=== PATIENT | female | born 1960 | race Caucasian/White ===

== ENCOUNTER → 2016-12-04 | Outpatient (CLI) | payer BC ==
--- NOTE | 2016-12-09 09:40 | MRI ---
HISTORY: RIGHT KNEE PAIN AND OSTEOARTHRITIS. EXAM: NON CONTRAST MRI EXAM OF THE RIGHT KNEE. TECHNIQUE: Multisequence and multiplanar T1 and T2 weighted sequences of the right knee were obtaine d without the administration of IV paramagnetic contrast at 1.5 Amina. COMPARISON: None available. FINDINGS: There is advanced, grade 3 and regions of grade 4, patellofemoral chondromalacia with moderate later al tracking the patella and moderate patellofemoral compartment DJD. There is a moderate size knee j oint effusion. There is no acute fracture appreciated. There is evidence for prepatellar bursitis. T here is full-thickness chondromalacia seen in the weight-bearing sector of the lateral knee compartm ent with diffuse maceration of the lateral meniscus. There is inner edge fraying of the medial menis cus, diffusely without evidence for a displaced medial meniscal tear. There is a chronic strain of t he otherwise intact MCL. The ACL is incompletely visualized which would suggest at least a partial t hickness, chronic, ACL tear. The PCL is intact. The posterior-lateral corner structures are intact. There is a large posterior popliteal cyst with adjacent inflammation and fluid between the medial he ad of the gastrocnemius and semimembranosus which measures 56 x 56 mm. The extensor mechanism of the knee joint is intact. There is degenerative bone marrow edema seen throughout the lateral knee comp artment which is somewhat remodeled. Retained red bone marrow seen within the distal femur and proxi mal tibia. No other bony abnormalities are identified. No stress fracture or destructive bone marrow lesion is evident. IMPRESSION: Advanced, grade 3 and regions of grade 4, patellofemoral chondromalacia with moderate lateral tracki ng the patella and moderate patellofemoral compartment DJD. Moderate sized knee joint effusion. No acute fracture appreciated. Prepatellar bursitis. Full-thickness (GRADE IV) chondromalacia seen in the weight-bearing sector of the lateral knee mark rtment with diffuse maceration of the lateral meniscus observed. Inner edge fraying of the medial meniscus, diffusely without evidence for a displaced medial menisca l tear. Chronic strain of the otherwise intact MCL. The ACL is incompletely visualized which would suggest at least a partial thickness, chronic, ACL te ar. The PCL is intact. The posterior-lateral corner structures are intact. Large posterior popliteal cyst with adjacent inflammation and fluid between the medial head of the g astrocnemius and semimembranosus which measures 56 x 56 mm. Degenerative bone marrow edema seen throughout the lateral knee compartment which is somewhat remode led. Retained red bone marrow seen in the distal femur and tibia. Reported By:
== END | disposition home or self-care (01) ==
LOC: RAD 12:42
PROVIDERS: ATTEND Specialist
DX: M17.0 Bilateral primary osteoarthritis of knee (principal); S83.411A Sprain of medial collateral ligament of right knee, initial encounter; X58.XXXA Exposure to other specified factors, initial encounter; M22.41 Chondromalacia patellae, right knee; M25.461 Effusion, right knee; M70.41 Prepatellar bursitis, right knee; M23.331 Other meniscus derangements, other medial meniscus, right knee; R60.0 Localized edema
CPT/HCPCS: 73721

== ENCOUNTER → 2017-02-11 | Outpatient (CLI) | payer BC ==
--- NOTE | 2017-02-11 14:22 | RAD ---
Examination: Chest x-ray. Clinical History: Preop for right TKR. Technique: PA and lateral views of the chest were obtained. Comparison: None available. Findings: The cardiac silhouette is borderline enlarged. No pneumothorax or pleural effusion is noted. The lungs appear clear. Degenerative changes are noted in the spine. No acute osseous abnormality is noted. Impression: 1. Borderline enlarged cardiac silhouette. Reported By:
[2017-02-11 14:54] LABS: BILIRUBIN,URINE NEGATIVE (NEGATIVE); BLOOD/HEMOGLOBIN,URINE NEGATIVE (NEGATIVE); GLUCOSE, URINE NEGATIVE (NEGATIVE); KETONES,URINE NEGATIVE (NEGATIVE); LEUKOCYTE ESTERASE ,URINE NEGATIVE (NEGATIVE); NITRITES,URINE NEGATIVE (NEGATIVE); PROTEIN,URINE NEGATIVE (NEGATIVE); UROBILINOGEN,URINE NORMAL (NORMAL)
[2017-02-11 14:55] LABS: BASOPHILS # (AUTO) 0.1 X10^3/uL (0.0-0.1); BASOPHILS % (AUTO) 1.4 % (0.2-1.0); EOSINOPHILS # (AUTO) 0.3 x10^3/uL (0.0-0.2); HEMATOCRIT 45.1 % (36.0-47.0); HEMOGLOBIN 15.2 g/dL (12.0-16.0); LYMPHOCYTES # (AUTO) 1.5 X10^3/uL (1.3-2.9); MEAN CORPUSCULAR HGB CONC 33.8 g/dL (33.0-35.0); MEAN CORPUSCULAR VOLUME 85.8 fL (80.0-100.0); MEAN PLATELET VOLUME 8.2 fL (7.4-11.0); MONOCYTES # (AUTO) 0.4 x10^3/uL (0.3-0.8); MONOCYTES % (AUTO) 6.8 % (0.0-13.0); NEUTROPHILS # (AUTO) 3.6 x10^3/uL (2.2-4.8); NEUTROPHILS % (AUTO) 60.8 % (42.0-75.0); PLATELET COUNT 342 X10^3/uL (150.0-450.0); RED BLOOD COUNT 5.26 X10^6/uL (3.5-5.4); RED CELL DISTRIBUTION WIDTH 13.4 % (11.6-16.5); WHITE BLOOD COUNT 5.9 X10^3/uL (3.6-10.0)
[2017-02-11 15:02] LABS: APPEARANCE,URINE CLEAR (CLEAR); BACTERIA,URINE NEGATIVE /HPF (NEGATIVE); COLOR,URINE YELLOW (YELLOW); RBC,URINE 0 /HPF (NEGATIVE); SQUAMOUS EPITHELIAL CELL,UR NEGATIVE /HPF (NEGATIVE)
[2017-02-11 15:05] LABS: ALANINE AMINOTRANSFERASE 27 Units/L (12-78); ALBUMIN 3.7 g/dL (3.4-5.0); ALKALINE PHOSPHATASE 69 Units/L (46-116); ASPARTATE AMINO TRANSFERASE 22 Units/L (15-37); BLOOD UREA NITROGEN 16 mg/dL (7-18); CALCIUM 9.5 mg/dL (8.5-10.1); CARBON DIOXIDE 31.3 mmol/L (21-32); CHLORIDE 100 mmol/L (98-107); CREATININE 0.84 mg/dL (0.55-1.02); SODIUM 136 mmol/L (136-145); TOTAL PROTEIN 8.3 g/dL (6.4-8.2); eGFR BLACK RACES > 60 (>60); eGFR NON BLACK RACES > 60 (>60)
[2017-02-11 15:36] LABS: ERYTHROCYTE SEDIMENTATION RATE 8 MM/HOUR (0-20)
== END ==
LOC: RAD 13:22
PROVIDERS: ATTEND Orthopaedic Surgery
DX: Z01.818 Encounter for other preprocedural examination (principal); Z79.899 Other long term (current) drug therapy; Z11.8 Encounter for screening for other infectious and parasitic diseases; Z01.810 Encounter for preprocedural cardiovascular examination; M17.0 Bilateral primary osteoarthritis of knee
CPT/HCPCS: 36415; 71020; 80053; 81001; 85025; 85652; 86140; 86850; 86900; 86901; 87640; 87641

== ENCOUNTER 2018-02-07 07:39 | Inpatient (IN) ==
[~2018-02-07 07:39] MED LIST: ANCEF 1 GRAM IV PREMIX* 2 G/100 ML BAG IV ONE; BACTROBAN TOPICAL OINT ONE; D5 LR 1000 ML 1,000 ML IV ONE; HYDROGEN PEROXIDE 3% ONE
[2018-02-07 08:15] VITALS: BMI 47.1
[2018-02-07] MEDS ORDERED: XYLOCAINE 1% and EPINEPHRINE 1:100,000 ONE (08:18)
[2018-02-07] MEDS ORDERED: MARCAINE 0.25% INJ ONE ×2 (08:19→10:08)
[2018-02-07] MEDS ORDERED: XYLOCAINE-MPF 1% ONE (08:19)
[2018-02-07] MEDS ORDERED: ADRENALINE CHL INJ ONE (08:20)
[2018-02-07] MEDS ORDERED: KETALAR ONE (08:55)
[2018-02-07] MEDS ORDERED: FENTANYL INJ 100 mcg ONE (09:49)
[2018-02-07] MEDS ORDERED: NAROPIN EPIDURAL 0.2% 400 MG, NS 250 ML IV 200 ML EPI PRN ×2 (10:00)
[2018-02-07] MEDS ORDERED: Q PUMP EPI ONE (10:00)
[2018-02-07] MEDS ORDERED: LR 1000 ML IV 1,000 ML IV ONE (10:07)
[2018-02-07] MEDS ORDERED: DIPRIVAN VIAL 40 ML ONE (10:08)
[2018-02-07] MEDS ORDERED: ZOFRAN INJ 4 MG VIAL IVP PRN (11:45)
[2018-02-07] MEDS ORDERED: PHENERGAN INJ 25 MG IVP PRN (11:45)
[2018-02-07] MEDS ORDERED: REGLAN INJ 10 MG VIAL IVP PRN (11:45)
[2018-02-07] MEDS ORDERED: BENADRYL INJ 50 MG VIAL IVP PRN (11:45)
[2018-02-07] MEDS ORDERED: DILAUDID INJ IVP PRN (11:45)
[2018-02-07] MEDS ORDERED: VERSED ONE (14:34)
[2018-02-07] MEDS ORDERED: DIPRIVAN VIAL ONE (14:34)
[2018-02-07] MEDS ORDERED: EPHEDRINE SULFATE INJ ONE (14:34)
[2018-02-07] MEDS ORDERED: ZOFRAN INJ 4 MG VIAL ONE (15:00)
[2018-02-07] MEDS: ZOFRAN INJ 4 MG VIAL IVP PRN ×2 (15:05→21:52)
[2018-02-07] MEDS ORDERED: ZOLOFT PO ONE (20:09)
[2018-02-07] MEDS: ZOLOFT PO SCH (20:11)
[2018-02-07] MEDS: KLONOPIN TAB 1 MG PO SCH (20:11)
--- NOTE | 2018-02-07 23:16 | RAD ---
HISTORY: Postop right knee arthroplasty Study: Two views right knee Comparison: None Findings: The patient has undergone right total knee arthroplasty without periprosthetic fracture or dislocatio n. There are expected postsurgical changes within the soft tissues. IMPRESSION: Satisfactory postoperative appearance of the right knee. Reported By:
[2018-02-08] MEDS: LR 1000 ML IV 1,000 ML IV SCH ×2 (00:21→04:13)
[2018-02-08] MEDS: MORPHINE SULFATE PCA 30 MG IV PRN ×2 (02:44→13:18)
[2018-02-08] MEDS: ZOFRAN INJ 4 MG VIAL IVP PRN (05:31)
[2018-02-08 06:28] LABS: BASOPHILS # (AUTO) 0.1 X10^3/uL (0.0-0.1); BASOPHILS % (AUTO) 0.8 % (0.2-1.0); EOSINOPHILS # (AUTO) 0.1 x10^3/uL (0.0-0.2); EOSINOPHILS % (AUTO) 1.2 % (0.9-2.9); HEMATOCRIT 38.7 % (36.0-47.0); HEMOGLOBIN 13.2 g/dL (12.0-16.0); LYMPHOCYTES # (AUTO) 0.8 X10^3/uL (1.3-2.9); LYMPHOCYTES % (AUTO) 11.3 % (21.0-51.0); MEAN CORPUSCULAR HEMOGLOBIN 29.3 pg (27.0-34.0); MEAN CORPUSCULAR HGB CONC 34.2 g/dL (33.0-35.0); MEAN CORPUSCULAR VOLUME 85.6 fL (80.0-100.0); MEAN PLATELET VOLUME 9.2 fL (7.4-11.0); MONOCYTES # (AUTO) 0.8 x10^3/uL (0.3-0.8); MONOCYTES % (AUTO) 10.7 % (0.0-13.0); NEUTROPHILS # (AUTO) 5.4 x10^3/uL (2.2-4.8); PLATELET COUNT 241 X10^3/uL (150.0-450.0); RED BLOOD COUNT 4.52 X10^6/uL (3.5-5.4); RED CELL DISTRIBUTION WIDTH 13.3 % (11.6-16.5); WHITE BLOOD COUNT 7.1 X10^3/uL (3.6-10.0)
[2018-02-08 06:29] LABS: BLOOD UREA NITROGEN 11 mg/dL (7-18); CALCIUM 8.3 mg/dL (8.5-10.1); CARBON DIOXIDE 30.1 mmol/L (21-32); CHLORIDE 99 mmol/L (98-107); COR NA(FOR HYPERGLY) 140 mmol/L (136-145); CREATININE 0.77 mg/dL (0.55-1.02); SODIUM 139 mmol/L (136-145); eGFR NON BLACK RACES > 60 (>60)
[2018-02-08] MEDS ORDERED: MAGNESIUM SULFATE 1 GRAM/100 mL PREMIX 1 GM/100 ML BAG IV PRN (06:34)
[2018-02-08] MEDS ORDERED: MICRO K EXTEN CAP 10 MEQ PO PRN (06:34)
[2018-02-08] MEDS ORDERED: K-RIDER 10 MEQ/NS 100 ML 10 MEQ/100 ML BAG IV PRN (06:34)
[2018-02-08] MEDS ORDERED: POTASSIUM CHL 60 MEQ/NS 0.45% 500 ML IV PRN (06:34)
[2018-02-08] MEDS ORDERED: POTASSIUM CHLORIDE LIQ 20 MEQ UDC PO PRN (06:34)
[2018-02-08] MEDS ORDERED: POTASSIUM CHL 40 MEQ/NS 0.45% 500 ML IV PRN (06:34)
[2018-02-08] MEDS ORDERED: KLOR-CON PO PRN (06:34)
[2018-02-08] MEDS: KLONOPIN TAB 1 MG PO SCH ×2 (09:32→20:53)
[2018-02-08] MEDS: ZOLOFT PO SCH ×2 (09:33→20:53)
[2018-02-08] MEDS: K-DUR TAB 20 MEQ PO PRN ×2 (09:46→20:54)
[2018-02-08] MEDS ORDERED: PATIENT'S HOME MEDICATION (Albuterol Sulfate [Proair Hfa] 2 PUFF) IN PRN (10:26)
[2018-02-08] MEDS: K-DUR TAB 20 MEQ PO SCH (11:29)
[2018-02-08] MEDS: ESTRACE PO SCH (12:07)
[2018-02-08] MEDS: NORVASC TAB 5 MG PO SCH ×2 (12:07→20:54)
[2018-02-08] MEDS: MAALOX or MYLANTA PO PRN (12:07)
[2018-02-08] MEDS: LIDODERM 5% PATCH TD SCH (12:07)
--- NOTE | 2018-02-08 16:10 | RAD ---
HISTORY: Hypoxia Study: Single view of the chest. Comparison: None. Findings: The cardiomediastinal silhouette is normal. No focal consolidations, pleural effusions or pneumothora x. Osseous structures demonstrate no acute abnormality. IMPRESSION: 1. No acute cardiopulmonary process. Reported By:
[2018-02-08] MEDS ORDERED: ZOLOFT PO ONE (20:47)
[2018-02-08] MEDS: MILK OF MAGNESIA PO SCH (20:52)
[2018-02-08] MEDS: COLACE CAP 100 MG PO SCH (20:52)
[2018-02-08] MEDS: NORCO 10/325 TAB PO PRN (20:53)
[2018-02-08] MEDS: LOVENOX INJ 40 MG SYR SC SCH (20:55)
[2018-02-09] MEDS: NORCO 10/325 TAB PO PRN ×2 (02:25→08:36)
[2018-02-09 05:19] LABS: BASOPHILS % (AUTO) 0.4 % (0.2-1.0); EOSINOPHILS # (AUTO) 0.3 x10^3/uL (0.0-0.2); HEMATOCRIT 35.2 % (36.0-47.0); LYMPHOCYTES % (AUTO) 14.1 % (21.0-51.0); MEAN CORPUSCULAR HEMOGLOBIN 29.1 pg (27.0-34.0); MEAN CORPUSCULAR VOLUME 85.7 fL (80.0-100.0); MEAN PLATELET VOLUME 8.7 fL (7.4-11.0); MONOCYTES # (AUTO) 0.5 x10^3/uL (0.3-0.8); MONOCYTES % (AUTO) 7.3 % (0.0-13.0); NEUTROPHILS # (AUTO) 5.1 x10^3/uL (2.2-4.8); NEUTROPHILS % (AUTO) 74.2 % (42.0-75.0); PLATELET COUNT 243 X10^3/uL (150.0-450.0); RED BLOOD COUNT 4.11 X10^6/uL (3.5-5.4); RED CELL DISTRIBUTION WIDTH 13.4 % (11.6-16.5); WHITE BLOOD COUNT 6.9 X10^3/uL (3.6-10.0)
[2018-02-09 05:24] LABS: BLOOD UREA NITROGEN 10 mg/dL (7-18); CALCIUM 7.8 mg/dL (8.5-10.1); CARBON DIOXIDE 30.5 mmol/L (21-32); CHLORIDE 101 mmol/L (98-107); COR NA(FOR HYPERGLY) 139 mmol/L (136-145); CREATININE 0.85 mg/dL (0.55-1.02); MAGNESIUM 2.1 mg/dL (1.7-2.9); SODIUM 137 mmol/L (136-145); eGFR NON BLACK RACES > 60 (>60)
[2018-02-09] MEDS: LR 1000 ML IV 1,000 ML IV SCH ×3 (06:04→22:05)
[2018-02-09] MEDS: ESTRACE PO SCH (09:47)
[2018-02-09] MEDS: K-DUR TAB 20 MEQ PO SCH (09:47)
[2018-02-09] MEDS: ZOLOFT PO SCH ×2 (09:47→20:51)
[2018-02-09] MEDS: NORVASC TAB 5 MG PO SCH ×2 (09:48→20:52)
[2018-02-09] MEDS: MILK OF MAGNESIA PO SCH ×2 (09:48→20:49)
[2018-02-09] MEDS: KLONOPIN TAB 1 MG PO SCH ×2 (09:48→20:51)
[2018-02-09] MEDS: ULTRAM PO PRN ×3 (09:48→23:22)
[2018-02-09] MEDS: LIDODERM 5% PATCH TD SCH (09:49)
[2018-02-09] MEDS: MAALOX or MYLANTA PO PRN (10:06)
[2018-02-09] MEDS: ZOFRAN INJ 4 MG VIAL IVP PRN (10:07)
[2018-02-09] MEDS: PERCOCET TAB 5/325 MG PO PRN ×3 (12:28→20:50)
--- NOTE | 2018-02-09 16:21 | PCM.PROG ---
Progress Note - Progress Note for Day of Date of Exam: 02/08/18 - Subjective Subjective: IS DAY ONE STATUS POST RIGHT TOTAL KNEE REPLACEMENT. TODAY, SHE IS ALERT AND ORIENTED, LYING IN BED ON MORNING ROUNDS. SHE COMPLAINS OF SEVERE PAIN TO THE RIGHT KNEE. SHE DENIES GETTING OUT OF BED SINCE SURGERY. ON EXAMINATION, HEART IS REGULAR IN RATE AND RHYTHM. BILATERAL LUNGS ARE NOTED WITH DIMINISHED LUNG SOUNDS THROUGHT. ABDOMEN IS ROUND, SOFT, AND NON-TENDER WITH NORMAL BOWEL SOUNDS NOTED IN ALL QUADRANTS. RIGHT KNEE IS NOTED WITH A SURGICAL DRESSING. DRESSING IS DRY AND INTACT WITH NO SIGNS OR SX INFECTION NOTED TO SITE. THERE IS A DRAIN NOTE TO THE RIGHT THIGH WITH SEROUS DRAINAGE NOTED IN CONTAINER. SCDs NOTED BILATERALLY. HER VITLAS THIS MORNING ARE 99.1-83-20-92%RA-131/60. LABS WERE OBTAINED. ABNORMAL LAB VALUES INCLUDE THE FOLLOWING: POTASSIUM 2.4, GLUCOSE 140, CALCIUM 8.3, MAGNESIUM 1.5. PATIENT WAS HYPOTENSIVE AFTER SURGERY. SHE WAS GIVEN A 500ML NORMAL SALINE BOLUS AND PLACED IN [place] POSITION. AN INCREASE IN BLOOD PRESSURE TO 98/57 NOTED. SHE CONTINUES TO RECEIVE A MORPHINE CANDY ROLLING MACHINE OPERATOR FOR PAIN CONTROL THIS MORNING. TODAY, WE WILL CONTINUE WITH CURRENT PLAN OF CARE AND REPLACE HER POTASSIUM AND MAGNESIUM PER THE PROTOCOL. WE ENCOURAGED PARTICIPATION WITH PHYSICAL THERAPY TODAY. PATIENT VERBALIZED UNDERSTANDING. OTHERWISE, WE WILL FOLLOW UP WITH AM LABS AND CONTINUE TO MONITOR. - Past Medical Family Social History Past Med/Fam/Surg Hx: No changes since H&P Allergies: Allergies Sulfa (Sulfonamide Antibiotics) [SULFA] Allergy (Verified 02/07/18 07:24) - Review of Systems ROS: No change since H&P - Vital Signs and I&O's Vital Signs: Temperature 99.7 F Pulse Rate [Left Brachial] 82 Pulse Rate 59 Respiratory Rate 20 Blood Pressure [Left Arm] 119/58 Blood Pressure 89/50 O2 Sat by Pulse Oximetry 91 Intake and Output: Intake & Output 02/07/18 02/08/18 02/09/18 02/10/18 11:59 11:59 11:59 11:59 Intake Total 4130 / 4130 1280 / 1280 960 / 960 Output Total 1745 / 1745 20 / 20 Balance 2385 / 2385 1260 / 1260 960 / 960 - Physical Exam Oriented: Normal Eyes: Normal Ear: Normal Nose: Normal Throat: Normal Respiratory: Generalized, Diminished Cardiovascular: Normal. negative: S3, S4, Murmur : Normal Auscultation: Bowel Sounds: Normal Palpation: Normal Tenderness: Normal Skin: Wound (RIGHT KNEE SURGICAL WOUND ) Musculoskeletal: Right, Knee, Tender Psychiatric: Normal Mood Description: Anxious Affect: Anxious Speech Pattern: Clear, Appropriate - Laboratory and Diagnostics Result Diagrams: 02/09/18 04:45 02/09/18 04:45 Labs: Laboratory WBC 6.9 X10^3/uL (3.6-10.0) 02/09/18 04:45 RBC 4.11 X10^6/uL (3.5-5.4) 02/09/18 04:45 Hgb 12.0 g/dL (12.0-16.0) 02/09/18 04:45 Hct 35.2 % (36.0-47.0) L 02/09/18 04:45 MCV 85.7 fL (80.0-100.0) 02/09/18 04:45 MCH 29.1 pg (27.0-34.0) 02/09/18 04:45 MCHC 34.0 g/dL (33.0-35.0) 02/09/18 04:45 RDW 13.4 % (11.6-16.5) 02/09/18 04:45 Plt Count 243 X10^3/uL (150.0-450.0) 02/09/18 04:45 MPV 8.7 fL (7.4-11.0) 02/09/18 04:45 Neut % (Auto) 74.2 % (42.0-75.0) 02/09/18 04:45 Lymph % (Auto) 14.1 % (21.0-51.0) L 02/09/18 04:45 [place] % (Auto) 7.3 % (0.0-13.0) 02/09/18 04:45 Eos % (Auto) 4.0 % (0.9-2.9) H 02/09/18 04:45 Baso % (Auto) 0.4 % (0.2-1.0) 02/09/18 04:45 Neut # (Auto) 5.1 x10^3/uL (2.2-4.8) H 02/09/18 04:45 Lymph # (Auto) 1.0 X10^3/uL (1.3-2.9) L 02/09/18 04:45 [place] # (Auto) 0.5 x10^3/uL (0.3-0.8) 02/09/18 04:45 Eos # (Auto) 0.3 x10^3/uL (0.0-0.2) H 02/09/18 04:45 Baso # (Auto) 0.0 X10^3/uL (0.0-0.1) 02/09/18 04:45 Absolute Nucleated RBC 0.0 /100WBC 02/09/18 04:45 Sodium 137 mmol/L (136-145) 02/09/18 04:45 Corrected Sodium 139 mmol/L (136-145) 02/09/18 04:45 Potassium 3.5 mmol/L (3.5-5.1) 02/09/18 04:45 Chloride 101 mmol/L (98-107) 02/09/18 04:45 Carbon Dioxide 30.5 mmol/L (21-32) 02/09/18 04:45 BUN 10 mg/dL (7-18) 02/09/18 04:45 Creatinine 0.85 mg/dL (0.55-1.02) 02/09/18 04:45 Est GFR (MDRD) Af Amer > 60 (>60) 02/09/18 04:45 Est GFR (MDRD) Non-Af > 60 (>60) 02/09/18 04:45 Glucose 180 mg/dL (65-99) H 02/09/18 04:45 Calcium 7.8 mg/dL (8.5-10.1) L 02/09/18 04:45 Magnesium 2.1 mg/dL (1.7-2.9) 02/09/18 04:45 - Plan (1) Status post right knee replacement Status: Acute Plan: PAIN MANAGEMENT, PHYSICAL THERAPY, CONTINUE TO MONITOR (2) Hypokalemia Status: Acute Plan: REPLACEMENT PER PROTOCOL (3) Hypomagnesemia Status: Acute Plan: REPLACEMENT PER PROTOCOL
--- NOTE | 2018-02-09 16:28 | PCM.PROG ---
Progress Note - Progress Note for Day of Date of Exam: 02/09/18 - Subjective Subjective: IS DAY TWO STATUS POST RIGHT TOTAL KNEE REPLACEMENT. TODAY, SHE IS ALERT AND ORIENTED, LYING IN BED ON MORNING ROUNDS. SHE CONTINUES TO COMPLAIN OF MODERATE PAIN TO THE RIGHT KNEE. SHE REFUSED TO WORK WITH THERAPY YESTERDAY. ON EXAMINATION, HEART IS REGULAR IN RATE AND RHYTHM. BILATERAL LUNGS ARE NOTED WITH DIMINISHED LUNG SOUNDS THROUGHT. ABDOMEN IS ROUND, SOFT, AND NON- TENDER WITH NORMAL BOWEL SOUNDS NOTED IN ALL QUADRANTS. RIGHT KNEE IS NOTED WITH A SURGICAL DRESSING. DRESSING IS DRY AND INTACT WITH NO SIGNS OR SX INFECTION NOTED TO SITE. THERE IS A DRAIN NOTE TO THE RIGHT THIGH WITH SEROUS DRAINAGE NOTED IN CONTAINER. SCDs NOTED BILATERALLY. HER VITALS THIS MORNING ARE 99.2-83-18-95%-106/59. LABS WERE OBTAINED. ABNORMAL LAB VALUES INCLUDE THE FOLLOWING: HCT 35.2, GLUCOSE 180, CALCIUM 7.8. HER BLOOD PRESSURE REMAINED STABLE YESTERDAY. SHE WAS TRANSITIONED TO PO PAIN CONTROL. TODAY, WE WILL CONTINUE WITH CURRENT PLAN OF CARE AND WE ENCOURAGED PARTICIPATION WITH PHYSICAL THERAPY TODAY. PATIENT VERBALIZED UNDERSTANDING. OTHERWISE, WE WILL FOLLOW UP WITH AM LABS AND CONTINUE TO MONITOR. - Past Medical Family Social History Past Med/Fam/Surg Hx: No changes since H&P Allergies: Allergies Sulfa (Sulfonamide Antibiotics) [SULFA] Allergy (Verified 02/07/18 07:24) - Review of Systems ROS: No change since H&P - Vital Signs and I&O's Vital Signs: Temperature 99.7 F Pulse Rate [Left Brachial] 82 Pulse Rate 59 Respiratory Rate 20 Blood Pressure [Left Arm] 119/58 Blood Pressure 89/50 O2 Sat by Pulse Oximetry 91 Intake and Output: Intake & Output 02/07/18 02/08/18 02/09/18 02/10/18 11:59 11:59 11:59 11:59 Intake Total 4130 / 4130 1280 / 1280 960 / 960 Output Total 1745 / 1745 20 / 20 Balance 2385 / 2385 1260 / 1260 960 / 960 - Physical Exam Oriented: Normal Eyes: Normal Ear: Normal Nose: Normal Throat: Normal Respiratory: Generalized, Diminished Cardiovascular: Normal. negative: S3, S4, Murmur : Normal Auscultation: Bowel Sounds: Normal Palpation: Normal Tenderness: Normal Skin: Wound (RIGHT KNEE SURGICAL WOUND ) Musculoskeletal: Right, Knee, Tender Psychiatric: Normal Mood Description: Anxious Affect: Anxious Speech Pattern: Clear, Appropriate - Laboratory and Diagnostics Result Diagrams: 02/09/18 04:45 02/09/18 04:45 Labs: Laboratory WBC 6.9 X10^3/uL (3.6-10.0) 02/09/18 04:45 RBC 4.11 X10^6/uL (3.5-5.4) 02/09/18 04:45 Hgb 12.0 g/dL (12.0-16.0) 02/09/18 04:45 Hct 35.2 % (36.0-47.0) L 02/09/18 04:45 MCV 85.7 fL (80.0-100.0) 02/09/18 04:45 MCH 29.1 pg (27.0-34.0) 02/09/18 04:45 MCHC 34.0 g/dL (33.0-35.0) 02/09/18 04:45 RDW 13.4 % (11.6-16.5) 02/09/18 04:45 Plt Count 243 X10^3/uL (150.0-450.0) 02/09/18 04:45 MPV 8.7 fL (7.4-11.0) 02/09/18 04:45 Neut % (Auto) 74.2 % (42.0-75.0) 02/09/18 04:45 Lymph % (Auto) 14.1 % (21.0-51.0) L 02/09/18 04:45 [place] % (Auto) 7.3 % (0.0-13.0) 02/09/18 04:45 Eos % (Auto) 4.0 % (0.9-2.9) H 02/09/18 04:45 Baso % (Auto) 0.4 % (0.2-1.0) 02/09/18 04:45 Neut # (Auto) 5.1 x10^3/uL (2.2-4.8) H 02/09/18 04:45 Lymph # (Auto) 1.0 X10^3/uL (1.3-2.9) L 02/09/18 04:45 [place] # (Auto) 0.5 x10^3/uL (0.3-0.8) 02/09/18 04:45 Eos # (Auto) 0.3 x10^3/uL (0.0-0.2) H 02/09/18 04:45 Baso # (Auto) 0.0 X10^3/uL (0.0-0.1) 02/09/18 04:45 Absolute Nucleated RBC 0.0 /100WBC 02/09/18 04:45 Sodium 137 mmol/L (136-145) 02/09/18 04:45 Corrected Sodium 139 mmol/L (136-145) 02/09/18 04:45 Potassium 3.5 mmol/L (3.5-5.1) 02/09/18 04:45 Chloride 101 mmol/L (98-107) 02/09/18 04:45 Carbon Dioxide 30.5 mmol/L (21-32) 02/09/18 04:45 BUN 10 mg/dL (7-18) 02/09/18 04:45 Creatinine 0.85 mg/dL (0.55-1.02) 02/09/18 04:45 Est GFR (MDRD) Af Amer > 60 (>60) 02/09/18 04:45 Est GFR (MDRD) Non-Af > 60 (>60) 02/09/18 04:45 Glucose 180 mg/dL (65-99) H 02/09/18 04:45 Calcium 7.8 mg/dL (8.5-10.1) L 02/09/18 04:45 Magnesium 2.1 mg/dL (1.7-2.9) 02/09/18 04:45 - Plan (1) Status post right knee replacement Status: Acute Plan: PAIN MANAGEMENT, PHYSICAL THERAPY, CONTINUE TO MONITOR (2) Hypokalemia Status: Resolved Plan: CONTINUE TO MONITOR (3) Hypomagnesemia Status: Resolved Plan: CONTINUE TO MONITOR
[2018-02-09] MEDS ORDERED: ZOLOFT PO ONE (20:36)
[2018-02-09] MEDS: COLACE CAP 100 MG PO SCH (20:50)
[2018-02-09] MEDS: LOVENOX INJ 40 MG SYR SC SCH (21:10)
[2018-02-10] MEDS: PERCOCET TAB 5/325 MG PO PRN ×3 (03:50→12:11)
[2018-02-10] MEDS: ULTRAM PO PRN ×2 (04:21→11:19)
[2018-02-10 05:24] LABS: BLOOD UREA NITROGEN 10 mg/dL (7-18); CALCIUM 7.7 mg/dL (8.5-10.1); CARBON DIOXIDE 29.8 mmol/L (21-32); CHLORIDE 101 mmol/L (98-107); COR NA(FOR HYPERGLY) 137 mmol/L (136-145); CREATININE 0.67 mg/dL (0.55-1.02); SODIUM 137 mmol/L (136-145); eGFR NON BLACK RACES > 60 (>60)
[2018-02-10 05:25] LABS: BASOPHILS % (AUTO) 0.7 % (0.2-1.0); EOSINOPHILS # (AUTO) 0.8 x10^3/uL (0.0-0.2); EOSINOPHILS % (AUTO) 11.9 % (0.9-2.9); HEMATOCRIT 34.3 % (36.0-47.0); HEMOGLOBIN 11.6 g/dL (12.0-16.0); LYMPHOCYTES # (AUTO) 1.5 X10^3/uL (1.3-2.9); LYMPHOCYTES % (AUTO) 22.4 % (21.0-51.0); MEAN CORPUSCULAR HGB CONC 33.9 g/dL (33.0-35.0); MEAN CORPUSCULAR VOLUME 85.4 fL (80.0-100.0); MEAN PLATELET VOLUME 8.6 fL (7.4-11.0); MONOCYTES # (AUTO) 0.7 x10^3/uL (0.3-0.8); MONOCYTES % (AUTO) 9.8 % (0.0-13.0); NEUTROPHILS # (AUTO) 3.7 x10^3/uL (2.2-4.8); NEUTROPHILS % (AUTO) 55.2 % (42.0-75.0); PLATELET COUNT 241 X10^3/uL (150.0-450.0); RED BLOOD COUNT 4.02 X10^6/uL (3.5-5.4); RED CELL DISTRIBUTION WIDTH 13.5 % (11.6-16.5); WHITE BLOOD COUNT 6.8 X10^3/uL (3.6-10.0)
[2018-02-10] MEDS: K-DUR TAB 20 MEQ PO PRN (07:15)
[2018-02-10] MEDS: ESTRACE PO SCH (09:21)
[2018-02-10] MEDS: K-DUR TAB 20 MEQ PO SCH (09:21)
[2018-02-10] MEDS: KLONOPIN TAB 1 MG PO SCH (09:22)
[2018-02-10] MEDS: LIDODERM 5% PATCH TD SCH (09:22)
[2018-02-10] MEDS: MILK OF MAGNESIA PO SCH (09:23)
[2018-02-10] MEDS: NORVASC TAB 5 MG PO SCH (09:23)
[2018-02-10] MEDS: ZOLOFT PO SCH (09:24)
--- NOTE | 2018-02-10 10:03 | OR.GENERIC ---
Post-Op Note Generic - Post-Op Note Operative Report: PREOPERATIVE DIAGNOSIS: Degenerative arthritis of the RIGHT knee. POSTOPERATIVE DIAGNOSIS: Degenerative arthritis of the RIGHT knee. PROCEDURE PERFORMED: RIGHT Total knee replacement BLOOD LOSS: 50 cc. ANESTHESIA: General. DATE OF SURGERY- 02/07/2018 IMPLANT USED FOR PROCEDURE: ROSALINE triathlon Femur-posterior stabilized, size 4 Tibia-cemented stem, size 4, stem 1250 mm Patella-symmetric 29 mm 8 mm Tibial bearing insert- posterior stabilized-13 mm, size 4 GROSS INTRAOPERATIVE FINDINGS: Degenerative [place] of three compartments of the trochlea, the medial, as well as the lateral femoral condyles as well was the plateau. severe genu valgum and flexion deformity. loose bodies in the posterior part of the knee. dysplastic lateral femoral condyle. severe lat tibial condyle deficieny. HISTORY: This is a 57-year-old female with complaints of RIGHT knee pain for several years and increased intensity in the past several months where it has affected her activities of daily living. She attempted conservative treatment, which includes anti-inflammatory medications as well as cortisone and Synvisc. This has only provided her with temporary relief. It is for that reason, she elected to undergo the above-named procedure. All risks as well as complications were discussed with the patient, which include, but are not limited to infection, deep vein thrombosis, pulmonary embolism, need for further surgery, and further pain. she has agreed to undergo this procedure and a consent was obtained preoperatively. limb was marked. got adductor canal block. got appropriate antibiotics. PROCEDURE: The patient was wheeled back to operating room and was placed supine on the operating room table. At this time, a nonsterile tourniquet was placed on the RIGHT upper thigh, but not inflated. An Esmarch was then used to exsanguinate the extremity and the left extremity was then prepped and draped in the usual sterile fashion for this procedure. The tourniquet was then inflated to 325 mmHg. At this time, a standard midline incision was made. medial parapatellar arthrotomy was completed. medial release of proximl tibia, fat pad excision, ant femoral synovium excision was ompleted. Medail and lateral meniscua and ACL and PCL was excised.the patella was everted. At this time with a better exposure of the proximal tibia, we placed external tibial guide. This was placed with longitudinal axis of the tibia and carefully positioned in order to obtain an optimal cut for the proximal tibia. At this time with careful soft tissue retraction and protection, an oscillating saw was used to make a proximal tibial osteotomy. Prior to the osteotomy, the cut was checked with a depth gauge in order to assure appropriate bony resection. At this time, I then used a drill to cannulate the distal femoral canal in order to place the intramedullary guide. Distal femroal osteotomy was completed. siz 4 femur was determined. Epicondylar axis was determined. 4 in 1 block placed and bone cuts complted. posterior osteophytes removed with osteotome and curette. box cut finished. The block was then removed and an osteotome was then used to remove all the bony cut pieces. the tibia was sized to 4. Rotation was assessed and the proximal tibia was prepared for both the intramedullary stem as well as the flange.Once this was removed, we then implanted our trial components of size 4 to the femur and a size 4 mm tibial tray with 13 mm plastic articulating surface. The knee was taken through range of motion and revealed excellent femorotibial articulation.patient had complete extension. Flexion to 120. Stable in extension and flexion.tight lateral structures and minimal opening with varus was seen both in flexion and extension. Valgus stress resulted in a bony endpoint. The soft tissue balancing was done. Pie crusting of posterior lateral capsule as well as ITB was done with cautery. It was made sure that there was no twitches in the calf which indicated proximally to the peroneal nerve. A 13 mm polyethylene showed good stability. The 11 mm articulating polyethylene was also tried and it was found to be too loose. The patella was prepared with the jig after and resected 8 mm which maintained its initial thickness. At this time, the prosthesis was removed. we then copiously irrigated the wound and then suctioned it dry to get ready and prepped for cementation of the drilled components.posterior capsular injection was completed. At this time, polymethyl methacrylate cement was then mixed. The cement was placed on the tibial surface as well as the underneath surface of the component. The component was then placed and impacted with excess cement removed. In a similar fashion, the femoral and patellar component was also placed. A 13 mm plastic tray was then placed and the leg held in full extension and compression in order to obtain adequate bony cement content. Once the cement was fully hardened, the knee was flexed and a small osteotome was used to remove any extruding cement from around the prosthesis of the bone. Once this was performed, copious irrigation was used to irrigate the wound and the wound was then suctioned dry. We decided to go with a #13 mm polyethylene tray. At this time, this was placed to the tibial articulation and then left in place. This was rechecked with careful attention to detail with checking no soft tissue interpositioned between the polyethylene tray and the metal tray of the tibia. The knee was again taken through range of motion and revealed excellent tracking of the patella with good femur and tibial contact. A drain was placed and cut to length. At this time, the knee was irrigated and copiously suction dried. #1-0 Vicryl suture was then used to approximate the medial parapatellar arthrotomy in [id number] fashion. A tight capsular closure was performed. tourniquet was deflated and there tight capsular repair was watertight.At this time, the knee was again taken through range of motion to assure tight capsular closure. At this time, copious irrigation was used to irrigate the superficial wound. #2-0 Vicryl was used to approximate the wound with [id number] inverted suture. The skin was then approximated with nae. The leg was then cleansed. Sterile dressing Aquacel was applied. At this time, the patient was extubated and transferred to recovery in stable condition. Prognosis is good for this patient.post op xrays were satisfactory. patient had epidural so neurological examination could not be done.The distal pulsations were intact.the family was updated about the surgery. Postoperative instructions have been discussed with him. Patient is allowed full weightbearing without any restrictions. We will have her enough pain control for her. We will get physical therapy for her rehabilitation. We will also start her on LOVENOX.
[2018-02-10] MEDS ORDERED: ZOFRAN TAB 4 MG PO PRN (11:08)
[2018-02-10 13:16] VITALS: BP 131/60
--- NOTE | 2018-03-24 02:13 | DR.CARTERD ---
- Discharge Summary for: Discharge Summary for Date of:: 02/10/18 - Admission Date Date of Admission: 02/07/18 - Admission Diagnoses Admission Diagnosis: (1) Status post right knee replacement (2) Hypokalemia (3) Hypomagnesemia - Discharge Date Discharge Date: 02/10/18 - Discharge Diagnoses Discharge Diagnosis: (1) Status post right knee replacement (2) Hypokalemia (3) Hypomagnesemia - Hospital Course Hospital Course: DAY ONE, PATIENT WAS ADMITTED TO THE HOSPITAL FOR A TOTAL RIGHT KNEE REPLACEMENT TO BE PERFORMED BY DR. CARDOZA. PROCEDURE WAS PERFORMED TODAY. WE CONTINUED WITH CURRENT PLAN OF TREATMENT AND CONTINUED TO MONITOR. DAY TWO, SHE WAS ALERT AND ORIENTED, LYING IN BED ON MORNING ROUNDS. SHE COMPLAINED OF SEVERE PAIN TO THE RIGHT KNEE. SHE DENIED GETTING OUT OF BED SINCE SURGERY. ON EXAMINATION, HEART WAS REGULAR IN RATE AND RHYTHM. BILATERAL LUNGS WERE NOTED WITH DIMINISHED LUNG SOUNDS THROUGHOUT. ABDOMEN WAS ROUND, SOFT, AND NON-TENDER WITH NORMAL BOWEL SOUNDS NOTED IN ALL QUADRANTS. RIGHT KNEE WAS NOTED WITH A SURGICAL DRESSING. DRESSING WAS DRY AND INTACT WITH NO SIGNS OR SX INFECTION NOTED TO SITE. THERE WAS A DRAIN NOTED TO THE RIGHT THIGH WITH SEROUS DRAINAGE NOTED IN CONTAINER. SCDs NOTED BILATERALLY. HER VITLAS THIS MORNING WERE 99.1-83-20-92%RA-131/60. LABS WERE OBTAINED. ABNORMAL LAB VALUES INCLUDED THE FOLLOWING: POTASSIUM 2.4, GLUCOSE 140, CALCIUM 8.3, MAGNESIUM 1.5. PATIENT WAS HYPOTENSIVE AFTER SURGERY. SHE WAS GIVEN A 500ML NORMAL SALINE BOLUS AND PLACED IN [place] POSITION. AN INCREASE IN BLOOD PRESSURE TO 98/57 NOTED. SHE CONTINUED TO RECEIVE A MORPHINE RUBBER STAMP DIE INSPECTOR FOR PAIN CONTROL THIS MORNING. TODAY, WE ONTINUED WITH CURRENT PLAN OF CARE AND REPLACED HER POTASSIUM AND MAGNESIUM PER THE PROTOCOL. WE ENCOURAGED PARTICIPATION WITH PHYSICAL THERAPY TODAY. PATIENT VERBALIZED UNDERSTANDING. WE FOLLOWED UP WITH AM LABS AND CONTINUED TO MONITOR. DAY THREE, SHE WAS ALERT AND ORIENTED, LYING IN BED ON MORNING ROUNDS. SHE CONTINUED TO COMPLAIN OF MODERATE PAIN TO THE RIGHT KNEE. SHE REFUSED TO WORK WITH THERAPY YESTERDAY. ON EXAMINATION, HEART WAS REGULAR IN RATE AND RHYTHM. BILATERAL LUNGS WERE NOTED WITH DIMINISHED LUNG SOUNDS THROUGHOUT. ABDOMEN WAS ROUND, SOFT, AND NON-TENDER WITH NORMAL BOWEL SOUNDS NOTED IN ALL QUADRANTS. RIGHT KNEE WAS NOTED WITH A SURGICAL DRESSING. DRESSING WAS DRY AND INTACT WITH NO SIGNS OR SX INFECTION NOTED TO SITE. THERE WAS A DRAIN NOTED TO THE RIGHT THIGH WITH SEROUS DRAINAGE NOTED IN CONTAINER. SCDs NOTED BILATERALLY. HER VITALS THIS MORNING WERE 99.2-83-18-95%-106/59. LABS WERE OBTAINED. ABNORMAL LAB VALUES INCLUDED THE FOLLOWING: HCT 35.2, GLUCOSE 180, CALCIUM 7.8. HER BLOOD PRESSURE REMAINED STABLE YESTERDAY. SHE WAS TRANSITIONED TO PO PAIN CONTROL. TODAY, WE CONTINUED WITH CURRENT PLAN OF CARE AND WE ENCOURAGED PARTICIPATION WITH PHYSICAL THERAPY. PATIENT VERBALIZED UNDERSTANDING. WE FOLLOWED UP WITH AM LABS AND CONTINUED TO MONITOR. DAY FOUR, PATIENT DOING WELL TODAY. DRAIN REMOVED. PATIENT ABLE TO TOLERATE PAIN WITH PO PAIN MEDICATION. VITAL SIGNS WERE STABLE. LABS WERE WITHIN NORMAL LIMITS. THERE WERE NO SIGNS OR SYMPTOMS OF INFECTION IN RIGHT KNEE. WE PLANNED FOR DISCHARGE. INSTRUCTIONS FOR MEDICATIONS AND FOLLOW UPS WERE DISCUSSED WITH PATIENT AND FAMILY, BOTH VOICED UNDERSTANDING. PATIENT WAS DISCHARGED TO [facility] FOR FURTHER PHYSICAL THERAPY. - Discharge Medications Discharge Medications: Home Medication List albuterol sulfate [ProAir HFA] 2 puff INHALATION PRN PRN 02/07/18 [History] carvedilol 25 mg PO BID 02/07/18 [History] furosemide 20 mg PO DAILY 02/07/18 [History] hydrocodone-acetaminophen 1 tab PO Q4-6H PRN 02/07/18 [History] lidocaine 1 patch TOPICAL DAILY 02/07/18 [History] potassium chloride 20 meq PO DAILY 02/07/18 [History] enoxaparin [Lovenox] 30 mg SUBCUT Q12H #38 ml 02/10/18 [Rx] oxycodone-acetaminophen [Percocet] 1 tab PO Q4H PRN #120 tab 02/10/18 [Rx] tramadol 1 - 2 tab PO Q4H PRN #60 tab 02/10/18 [Rx] Prescriptions: enoxaparin [Lovenox] Martell Mathew oxycodone-acetaminophen [Percocet] Martell Mathew tramadol Martell Mathew Ambulatory Orders amlodipine 5 mg PO BID 02/11/17 clonazepam 1 mg PO BID 02/11/17 estradiol 1 mg PO DAILY 02/11/17 losartan-hydrochlorothiazide [Hyzaar] 1 tab PO DAILY 02/11/17 sertraline 100 mg PO HS 02/11/17 sertraline 50 mg PO DAILY 02/11/17 - Discharge Disposition Discharge Disposition: PATIENT TO FOLLOW UP WITH PCP DR. TAPIA IN ONE WEEK. PATIENT TO FOLLOW UP WITH DR. CARDOZA IN ONE WEEK.
== END 2018-02-10 14:40 | DRG 470 ==
LOC: MED/SURG 07:39
PROVIDERS: ADMIT Orthopaedic Surgery; ATTEND Internal Medicine
DX: M25.461 Effusion, right knee; M25.561 Pain in right knee; I95.89 Other hypotension; E83.42 Hypomagnesemia; E11.65 Type 2 diabetes mellitus with hyperglycemia; M17.11 Unilateral primary osteoarthritis, right knee; I10 Essential (primary) hypertension; R26.89 Other abnormalities of gait and mobility; E87.6 Hypokalemia; E03.8 Other specified hypothyroidism
CPT/HCPCS: 36415; 71010; 71045; 73560; 80048; 83735; 84132; 85025; 94762; 97110; 97163; 97167; 97530; 97535; A4222; A7030; S0020; J0171; J0690; J1650; J2250; J2271; J2405; J2704; J2795; J3010; J3475; J3490; J7050; J7120; J7121; S0181